=== PATIENT | female | born 1970 | race Caucasian/White ===

== ENCOUNTER 2017-05-13 17:43 | Emergency (ER) | payer BC ==
[2017-05-13] MEDS ORDERED: Ketorolac INJ* 60 MG/2 ML VIAL IM ONE (18:58)
[2017-05-13 20:18] LABS: ABS Basophils 0 10^3/ul (0-0.2); ABS Eosinophils 0 10^3/ul (0-0.6); ABS Lymphocytes 1.4 10^3/ul (1.0-4.8); ABS Monocytes 0.7 10^3/ul (0-0.8); ABS Neutrophils 11.9 10^3/ul (1.5-7.7); ABS Nucleated RBC 0 10^3/ul; Eosinophil % 0.3 % (0-6); Hematocrit 40 % (35-47); Hemoglobin 13.4 g/dl (12.0-16.0); Lymphocyte % 10.1 % (25-47); Mean Corpuscular HGB Conc 34 g/dl (31-36); Mean Corpuscular Hemoglobin 29 pg (27-31); Mean Corpuscular Volume 86 fL (80-97); Mean Platelet Volume 7 um3 (7.4-10.4); Nucleated Red Blood Cells % 0.1; Platelet Count 337 10^3/ul (150-450); Red Blood Count 4.59 10^6/ul (4.0-5.4); Red Cell Distribution Width 14 % (10.5-15); White Blood Count 14.1 10^3/ul (3.5-10.8)
--- NOTE | 2017-05-13 20:23 | RAD ---
INDICATION: Left flank and pelvic pain COMPARISON: None TECHNIQUE: Real-time ultrasound examination of the bilateral kidneys and urinary bladder including grayscale and Doppler color flow analysis. FINDINGS: Bilaterally the kidneys are normal in size and echogenicity. There are no hypervascular renal masses. There are no renal calculi or hydronephrosis identified. The gregory of the urinary bladder are smooth. The pre and post urinary bladder volumes are 335 mL and 57 mL, respectively. Normal ureteral jets are identified bilaterally. Incidentally noted is a partially cystic structure in the uterus. IMPRESSION: 1. Normal ultrasound of the kidneys and urinary bladder. 2. Incidentally noted is a partially cystic structure in the uterus which could be related to the patient's history of endometrial ablation. If the patient is exhibiting any gynecologic symptoms dedicated transvaginal pelvic ultrasound is advised.
[2017-05-13 20:24] LABS: Urine Appearance Clear; Urine Blood 1+ (Negative); Urine Color Straw; Urine Ketones Negative (Negative); Urine Protein Negative (Negative); Urine Specific Gravity 1.003 (1.010-1.030); Urine Urobilinogen Negative (Negative)
[2017-05-13 20:30] LABS: EGFR Non-African American 74.3 (>60)
--- NOTE | 2017-05-13 21:22 | RAD ---
CLINICAL HISTORY: Left flank pain and hematuria COMPARISON: Same day renal ultrasound that did not show any acute renal abnormalities. TECHNIQUE: Noncontrast CT examination of the abdomen and pelvis from the lung bases through the initial tuberosities. FINDINGS: VISUALIZED LUNG BASES: The visualized lung bases are grossly clear. There is no pleural effusion. ABDOMEN AND PELVIS: Evaluation of the solid organs and vasculature is limited without intravenous contrast. The liver, spleen, pancreas and adrenal glands are grossly normal in appearance. The gallbladder is normal. The kidneys are normal in appearance without focal mass, calcification or signs of hydronephrosis. The small and large bowel are not distended. The appendix is not visualized consistent with the reported surgical history. There is no gross retroperitoneal or mesenteric lymphadenopathy. The uterus is slightly heterogeneous attenuation including a 9 mm hypoattenuating focus at the right of midline fundal height endometrium. The abdominal aorta and iliac arteries are normal in course and diameter. There is a small amount of subcutaneous induration overlying the right buttock with a focus of gas (image 59). Degenerative changes include multilevel loss of intervertebral disc height involving the lower thoracic and lumbar spine.There are no sinister bone lesions. IMPRESSION: 1. No renal calculi or signs of hydronephrosis identified. 2. Overlying the right buttock is a focus of subcutaneous gas surrounded by increased attenuation. Please correlate to recent injection site. 3. As was partially imaged on the prior renal ultrasound, the uterus is heterogeneous. The uterus is incompletely evaluated on a noncontrast CT as well. There is no prior pelvic imaging for comparison to comment on chronicity.
[2017-05-13] MEDS ORDERED: Ciprofloxacin TAB* 500 MG PO ONE (21:29)
[2017-05-13] MEDS ORDERED: oxyCODONE/Acetamin 5/325 MG* TAB PO ONE (21:29)
[2017-05-13 22:05] VITALS: BP 108/70
--- NOTE | 2017-05-15 11:05 | ED ---
Jian Leroy Stephanie, scribed for Mike Mujica MD on 05/13/17 at 1856 . Abdominal Pain/Female - History of Current Complaint Chief Complaint: EDAbdPain Stated Complaint: POSS KINDEY STONES Time Seen by Provider: 05/13/17 18:26 Hx Obtained From: Patient Hx Last Menstrual Period: 05/20/13 Onset/Duration: Gradual Onset, Lasting Days - 4, Still Present Timing: Constant Severity Currently: Severe Pain Intensity: 9 Pain Scale Used: 0-10 Numeric Location: Suprapubic Aggravating Factor(s): Nothing Alleviating Factor(s): Nothing Associated Signs and Symptoms: Negative: Urinary Symptoms Allergies/Adverse Reactions: Allergies Allergy/AdvReac Type Severity Reaction Status Date / Time MS Codeine [Codeine] Allergy Mild Hallucinati Verified 06/06/13 19:13 ons PMH/Surg Hx/FS Hx/Imm Hx Endocrine/Hematology History: Reports: Hx Thyroid Disease - left lobe thyroid removal Denies: Hx Diabetes Cardiovascular History: Denies: Hx Hypertension, Hx Pacemaker/ICD GI History: 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 History: Denies: Hx Dialysis, Hx Renal Disease Sensory History: Reports: Hx Contacts or Glasses Denies: Hx Hearing Aid Opthamlomology History: Reports: Hx Contacts or Glasses Neurological History: Reports: Hx Migraine Psychiatric History: Reports: Hx Anxiety, Hx Panic Disorder - ANXIETY WILL BE FINE FOR MRI - Cancer History Hx Chemotherapy: No Hx Radiation Therapy: No - Surgical History Surgery Procedure, Year, and Place: APPENDIX, FEMUR RODDING AND REMOVAL, BREAST AUGMENTATION, ENDOMETRIAL ABLATION, LEFT THYROID REMOVAL Infectious Disease History: No Infectious Disease History: Denies: Traveled Outside the [place] in Last 30 Days - Family History Known Family History: Positive: Cardiac Disease, Other - myeloma, renal cancer - Social History Occupation: Employed Full-time Lives: With Family Alcohol Use: Occasionally Alcohol Amount: once per month Substance Use Type: Reports: None Hx Tobacco Use: No Smoking Status (MU): Never Smoked Tobacco Review of Systems Negative: Fever, Chills Negative: Erythema Negative: Sore Throat Negative: Chest Pain Negative: Shortness Of Breath, Cough Positive: Abdominal Pain. Negative: Vomiting, Nausea Negative: dysuria, hematuria Negative: Myalgia, Edema Negative: Rash Neurological: Other - Negative: dizziness All Other Systems Reviewed And Are Negative: Yes Physical Exam - Summary Physical Exam Summary: Constitutional: Well-developed, Well-nourished, Alert. (-) Distressed Skin: Warm, Dry HENT: Normocephalic; Atraumatic Eyes: Conjunctiva normal Neck: Musculoskeletal ROM normal neck. (-) JVD, (-) Stridor, (-) Tracheal deviation Cardio: Rhythm regular, rate normal, Heart sounds normal; Intact distal pulses; The pedal pulses are 2+ and symmetric. Radial pulses are 2+ and symmetric. (-) Murmur Pulmonary/Chest wall: Effort normal. (-) Respiratory distress, (-) Wheezes, (-) Rales Abd: exquisite suprapubic tenderness, (-) Distension, (-) Guarding, (-) Rebound Musculoskeletal: (-) Edema Lymph: (-) Cervical adenopathy Neuro: Alert, Oriented x3 Psych: Mood and affect Normal Triage Information Reviewed: Yes Vital Signs On Initial Exam: Initial Vitals Temp Pulse Resp BP Pulse Ox 99.1 F 77 18 135/92 100 05/13/17 17:49 05/13/17 17:49 05/13/17 17:49 05/13/17 17:49 05/13/17 17:49 Vital Signs Reviewed: Yes Diagnostics - Vital Signs Vital Signs Temp Pulse Resp BP Pulse Ox 05/13/17 17:49 99.1 F 77 18 135/92 100 - Laboratory Result Diagrams: 05/13/17 20:00 05/13/17 20:00 Lab Statement: Any lab studies that have been ordered have been reviewed, and results considered in the medical decision making process. - CT Abd/Pelvis CT Interpretation: No Acute Changes CT Interpretation Completed By: Radiologist - 1. No renal calculi or signs of hydronephrosis identified. 2. Overlying the right buttock is a focus of subcutaneous gas surrounded by increased attenuation. Please correlate to recent injection site. 3. As was partially imaged on the prior renal ultrasound , the uterus is heterogeneous. The uterus is incompletely evaluated on a noncontrast CT as well. There is no prior pelvic imaging for comparison to comment on chronicity. - Additional Comments Diagnostic Additional Comments: US abdomen/bladder reveals: 1. Normal ultrasound of the kidneys and urinary bladder. 2. Incidentally noted is a partially cystic structure in the uterus which could be related to the patient's history of endometrial ablation. If the patient is exhibiting any gynecologic symptoms dedicated transvaginal pelvic ultrasound is advised. Re-Evaluation - Re-Evaluation First Eval Re-Evaluation Time: 20:30 Change: Improved - Pt feels better after Toradol. Abdominal Pain Fem Course/Dx - Course Course Of Treatment: Abx are appropriate. No sign of obstructing stone. - Diagnoses Provider Diagnoses: UTI (urinary tract infection), Flank pain Discharge - Discharge Plan Condition: Stable Disposition: HOME Patient Education Materials: Urinary Tract Infection in Women (ED), Flank Pain (ED) Referrals: Maggie Summers MD [Primary Care Provider] - 3 Days Additional Instructions: RETURN TO THE EMERGENCY DEPARTMENT FOR CHANGING OR WORSENING SYMPTOMS The documentation as recorded by the Jian russell Stephanie accurately reflects the service I personally performed and the decisions made by , Mike Mujica MD.
== END 2017-05-13 22:06 | disposition home or self-care (01) ==
LOC: ED 17:43
DX: N39.0 Urinary tract infection, site not specified (principal); N85.9 Noninflammatory disorder of uterus, unspecified; Z88.5 Allergy status to narcotic agent
CPT/HCPCS: 36415; 74176; 76770; 80053; 81003; 81015; 83605; 83690; 85025; 86140; 96372; 99283; A9270-GY; J1885

== ENCOUNTER 2017-07-22 11:54 | Emergency (ER) | payer BC ==
[2017-07-22] MEDS ORDERED: Morphine INJ* 10 MG/ML 1 ML CARPUJECT IV ONE (12:11)
[2017-07-22] MEDS ORDERED: Ondansetron INJ* 2 MG/ML VIAL IV ONE (12:11)
[2017-07-22] MEDS ORDERED: Morphine VIAL* 4 MG/ML VIAL (1 ml vial) IV ONE ×2 (12:48→12:56)
--- NOTE | 2017-07-22 13:39 | RAD ---
Indication: Left lower quadrant pain. Real-time sonography of the pelvis was performed utilizing endovaginal technique. The uterus measures 10.0 x 5.3 x 6.4 cm. Endometrial echo measures 8 mm. There is a fibroid in the anterior body measuring 17 x 19 x 19 mm. Hypoechoic area posterior to the endometrium may represent a submucosal cyst which was present previously and now measures 14 x 13 x 9 mm. This may represent a complex cyst or hemorrhagic cyst. The right ovary measures 3.1 x 1.7 x 2.2 cm. Left ovary measures 2.4 x 1.6 x 2.1 cm. Doppler interrogation demonstrates flow in both ovaries. IMPRESSION: No adnexal masses are noted. Fibroid in the anterior body of the uterus measures 17 x 19 x 19 mm. Likely complex cystic area posterior to the endometrium measuring 14 x 13 x 9 mm.
[2017-07-22 13:40] LABS: Urine Appearance Clear; Urine Blood Negative (Negative); Urine Color Straw; Urine Ketones Negative (Negative); Urine Protein Negative (Negative); Urine Urobilinogen Negative (Negative)
[2017-07-22 14:09] LABS: ABS Basophils 0.1 10^3/ul (0-0.2); ABS Eosinophils 0 10^3/ul (0-0.6); ABS Lymphocytes 0.5 10^3/ul (1.0-4.8); ABS Monocytes 0.7 10^3/ul (0-0.8); ABS Neutrophils 17.5 10^3/ul (1.5-7.7); ABS Nucleated RBC 0 10^3/ul; Eosinophil % 0.1 % (0-6); Hematocrit 38 % (35-47); Hemoglobin 12.7 g/dl (12.0-16.0); Lymphocyte % 2.8 % (25-47); Mean Corpuscular HGB Conc 33 g/dl (31-36); Mean Corpuscular Hemoglobin 29 pg (27-31); Mean Corpuscular Volume 88 fL (80-97); Mean Platelet Volume 6.8 um3 (7.4-10.4); Nucleated Red Blood Cells % 0; Platelet Count 222 10^3/ul (150-450); Red Blood Count 4.35 10^6/ul (4.0-5.4); Red Cell Distribution Width 13 % (10.5-15); White Blood Count 18.8 10^3/ul (3.5-10.8)
[2017-07-22 14:29] LABS: EGFR Non-African American 80.7 (>60)
[2017-07-22] MEDS ORDERED: Iohexol 300* (CONTRAST) 10 ML SDV IV ONE (16:56)
--- NOTE | 2017-07-22 17:57 | RAD ---
Indication: Left lower quadrant pain. Contrast: Administered 97.0 ml of OMNIPAQUE 300 mg/ml CT of the abdomen and pelvis was performed after oral and IV contrast administration. Coronal and sagittal reconstructed images were obtained. Comparison is made with previous exam dated May 13, 2017. The lung bases demonstrate no pleural fluid, nodules or masses. Heart is of normal size without evidence of pericardial effusion. The liver is normal in size. No focal lesions or intrahepatic ductal dilatation is noted. The gallbladder is distended with no evidence of gallstones, pericholecystic fluid or wall thickening. The spleen is normal in size. Pancreas demonstrates no mass effect or ductal dilatation. The common duct is not dilated. No adrenal lesions are noted. The kidneys demonstrate symmetric nephrograms without hydronephrosis. No solid masses are noted. A retroaortic left renal vein is noted. No evidence of bowel obstruction is noted with contrast in the right colon. Myomatous changes of the uterus are noted with low density lesions within the uterus. No adnexal masses are noted. A trace amount of fluid is noted in the cul-de-sac. No hernias are noted. Diverticulosis of the sigmoid colon without definite evidence of diverticulitis is noted. No inguinal adenopathy is noted. The bony structures are otherwise unremarkable. Sclerotic lesion is noted in the left ilium. IMPRESSION: Trace amount of free fluid in the cul-de-sac. Low density lesions in the uterus likely represent fibroids. No other masses or fluid collections are noted.
--- NOTE | 2017-07-22 18:43 | ED ---
I, Ml Villar, scribed for Lavon Calvert MD on 07/22/17 at 1808 . Progress - Progress Note Progress Note: CT abdomen/pelvis reveals: Trace amount of free fluid in the cul-de-sac. Low density lesions in the uterus likely represent fibroids. No other masses or fluid collections are noted. ED physician has reviewed this report. I assumed care from Dr. Mujica. Patient's pain is much improved. She was reexamined and there is no significant pain in the left lower quadrant or pelvis. No UTI or blood in the urine. There is a submucosal cyst that is apparently hemorrhagic which could be causing the symptoms. Based fibroid in the uterus could also be causative. She has follow-up scheduled for early July with her HAND BANDER but she is encouraged to call the morning to follow-up more closely. Will treat with antibiotics and pain control. Re-Evaluation - Re-Evaluation First Eval Re-Evaluation Time: 18:08 Change: Improved - The pt's pain is resolved. Course/Dx - Diagnoses Provider Diagnoses: LLQ pain, Pelvic pain in female, Uterine fibroid, Uterine cyst Discharge - Sign-Out/Discharge Documenting (check all that apply): Discharge/Admit/Transfer - discharge - Discharge Plan Condition: Good Disposition: HOME Prescriptions: Levofloxacin TAB* [Levaquin TAB*] 500 mg PO DAILY #7 tab traMADol TAB* [Ultram*] 50 mg PO Q8H PRN #10 tab MDD 3 PRN Reason: more severe pain Patient Education Materials: Pelvic Pain in Women (ED) Referrals: Maggie Summers MD [Primary Care Provider] - Additional Instructions: Follow up with your PHYSICAL THERAPY INSTRUCTOR first thing in the morning. Return with fever, uncontrolled pain, worse or other concerns. - Billing Disposition and Condition Condition: GOOD Disposition: HOME The documentation as recorded by the Jian russell Stephanie accurately reflects the service I personally performed and the decisions made by me, Lavon Calvert MD.
[2017-07-22] MEDS ORDERED: Ondansetron ODT TAB* 4 MG SL ONE (18:49)
[2017-07-22] MEDS ORDERED: Ibuprofen TAB* 400 MG PO ONE (18:50)
[2017-07-22 18:55] VITALS: BP 122/76
--- NOTE | 2017-07-24 13:42 | ED ---
I, Ml Villar, scribed for Mike Mujica MD on 07/22/17 at 1425 . Re-Evaluation - Re-Evaluation First Eval Re-Evaluation Time: 15:23 Change: Improved - The pt is pain-free at this time. Second Eval Re-Evaluation Time: 17:18 Change: Improved - The pt's pain is resolved. Course/Dx - Course Course Of Treatment: The pt is a sign out to Dr. Calvert at shift change pending CT abdomen/pelvis. There is significant concern for episodic pelvic pain vs diverticulitis. - Diagnoses Provider Diagnoses: LLQ pain Discharge - Sign-Out/Discharge Documenting (check all that apply): Sign-Out Patient Signing out patient TO: Lavon Calvert - Pending CT abdomen/pelvis. - Discharge Plan Condition: Stable Referrals: Maggie Summers MD [Primary Care Provider] - The documentation as recorded by the Jian russell Stephanie accurately reflects the service I personally performed and the decisions made by , Mike Mujica MD.
--- NOTE | 2017-07-24 13:44 | ED ---
Guille Leroy Julia, scribed for Mike Mujica MD on 07/22/17 at 1337 . Abdominal Pain/Female - HPI Summary HPI Summary: This patient is a 47 year old F BIBA to [facility] with a chief complaint of sudden onset lower abdominal pain/cramping worse on the left since 10:00 this morning. She states the pain radiates to the lower back. Pt reports nausea and diarrhea. Pt reports blood in her stool last week. Pt denies dysuria and hematuria. EMS gave 4mg of morphine which reduced her pain from a 10/10 to a 6/10. - History of Current Complaint Chief Complaint: EDAbdPain Stated Complaint: ABD PAIN Time Seen by Provider: 07/22/17 12:01 Hx Obtained From: Patient, EMS Onset/Duration: Sudden Onset, Lasting Hours Severity Initially: Severe Severity Currently: Moderate Pain Intensity: 6 Pain Scale Used: 0-10 Numeric Location: Other - lower worse on left Radiates: Yes Radiates to: Back Character: Cramping Aggravating Factor(s): Nothing Alleviating Factor(s): Medications - via EMS Associated Signs and Symptoms: Positive: Back Pain, Blood in Stool, Nausea, Diarrhea Allergies/Adverse Reactions: Allergies Allergy/AdvReac Type Severity Reaction Status Date / Time codeine Allergy Hallucinati Verified 07/22/17 12:03 ons Home Medications: Home Medications Pyridoxine TAB* [Vitamin B6 TAB*] 50 mg PO DAILY 07/22/17 [History Confirmed ] Zinc Gluconate-Zinc Picolinate [Zinc] 30 mg PO DAILY 07/22/17 [History Confirmed 07/22/17] PMH/Surg Hx/FS Hx/Imm Hx Endocrine/Hematology History: Reports: Hx Thyroid Disease - left lobe thyroid removal Denies: Hx Diabetes Cardiovascular History: Denies: Hx Hypertension, Hx Pacemaker/ICD GI History: 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 History: Denies: Hx Dialysis, Hx Renal Disease Sensory History: Reports: Hx Contacts or Glasses Denies: Hx Hearing Aid Opthamlomology History: Reports: Hx Contacts or Glasses Neurological History: Reports: Hx Migraine Psychiatric History: Reports: Hx Anxiety, Hx Panic Disorder - ANXIETY WILL BE FINE FOR MRI - Cancer History Hx Chemotherapy: No Hx Radiation Therapy: No - Surgical History Surgery Procedure, Year, and Place: APPENDIX, FEMUR RODDING AND REMOVAL, BREAST AUGMENTATION, ENDOMETRIAL ABLATION, LEFT THYROID REMOVAL Infectious Disease History: No Infectious Disease History: Denies: Traveled Outside the [place] in Last 30 Days - Family History Known Family History: Positive: Cardiac Disease, Other - myeloma, renal cancer - Social History Lives: With Family Alcohol Use: Occasionally Alcohol Amount: once per month Substance Use Type: Reports: None Hx Tobacco Use: No Smoking Status (MU): Never Smoked Tobacco Review of Systems Negative: Fever, Chills Negative: Erythema Negative: Sore Throat Negative: Chest Pain Negative: Shortness Of Breath, Cough Gastrointestinal: Other - bloody stool Positive: Abdominal Pain, Vomiting, Diarrhea, Nausea Negative: dysuria, hematuria Positive: Myalgia - back pain. Negative: Edema Negative: Rash Neurological: Negative - dizziness All Other Systems Reviewed And Are Negative: Yes Physical Exam - Summary Physical Exam Summary: Constitutional: Well-developed, Well-nourished, Alert. (-) Distressed Skin: Warm, Dry HENT: Normocephalic; Atraumatic Eyes: Conjunctiva normal Neck: Musculoskeletal ROM normal neck. (-) JVD, (-) Stridor, (-) Tracheal deviation Cardio: Rhythm regular, rate normal, Heart sounds normal; Intact distal pulses; The pedal pulses are 2+ and symmetric. Radial pulses are 2+ and symmetric. (-) Murmur Pulmonary/Chest wall: Effort normal. (-) Respiratory distress, (-) Wheezes, (-) Rales Abd: Soft, exquisite LLQ Tenderness, (-) Distension, (-) Guarding, (-) Rebound Musculoskeletal: (-) Edema Lymph: (-) Cervical adenopathy Neuro: Alert, Oriented x3 Psych: Mood and affect Normal Pelvic: left adnexal tenderness, no cervical motion. Dolly is present for exam. Triage Information Reviewed: Yes Vital Signs On Initial Exam: Initial Vitals Temp Pulse Resp BP Pulse Ox 98.6 F 80 18 134/84 100 07/22/17 11:58 07/22/17 11:58 07/22/17 11:58 07/22/17 11:58 07/22/17 11:58 Vital Signs Reviewed: Yes Diagnostics - Vital Signs Vital Signs Temp Pulse Resp BP Pulse Ox 07/22/17 13:05 79 18 100 07/22/17 12:02 74 134/84 100 07/22/17 12:01 77 100 07/22/17 11:58 98.6 F 80 18 134/84 100 - Laboratory Lab Results: Lab Results 07/22/17 07/22/17 07/22/17 Range/Units 12:29 13:05 13:52 WBC (3.5-10.8) 10^3/ul RBC (4.0-5.4) 10^6/ul Hgb (12.0-16.0) g/dl Hct (35-47) % MCV (80-97) fL MCH (27-31) pg MCHC (31-36) g/dl RDW (10.5-15) % Plt Count (150-450) 10^3/ul MPV (7.4-10.4) um3 Neut % (Auto) (38-83) % Lymph % (Auto) (25-47) % Webb % (Auto) (0-7) % Eos % (Auto) (0-6) % Baso % (Auto) (0-2) % Absolute Neuts (auto) (1.5-7.7) 10^3/ul Absolute Lymphs (auto) (1.0-4.8) 10^3/ul Absolute Monos (auto) (0-0.8) 10^3/ul Absolute Eos (auto) (0-0.6) 10^3/ul Absolute Basos (auto) (0-0.2) 10^3/ul Absolute Nucleated RBC 10^3/ul Nucleated RBC % Sodium 140 (139-145) mmol/L Potassium 3.4 L (3.5-5.0) mmol/L Chloride 108 (101-111) mmol/L Carbon Dioxide 23 (22-32) mmol/L Anion Gap 9 (2-11) mmol/L BUN 12 (6-24) mg/dL Creatinine 0.77 (0.51-0.95) mg/dL Est GFR ( Amer) 103.8 (>60) Est GFR (Non-Af Amer) 80.7 (>60) BUN/Creatinine Ratio 15.6 (8-20) Glucose 106 H (70-100) mg/dL Lactic Acid (0.5-2.0) mmol/L Calcium 8.8 (8.6-10.3) mg/dL Total Bilirubin 0.70 (0.2-1.0) mg/dL AST 18 (13-39) U/L ALT 13 (7-52) U/L Alkaline Phosphatase 59 (34-104) U/L C-Reactive Protein 2.59 (< 5.00) mg/L Total Protein 6.4 (6.4-8.9) g/dL Albumin 3.9 (3.2-5.2) g/dL Globulin 2.5 (2-4) g/dL Albumin/Globulin Ratio 1.6 (1-3) Lipase 14 (11.0-82.0) U/L Urine Color Straw Urine Appearance Clear Urine pH 6.0 (5-9) Ur Specific Matthews 1.010 (1.010-1.030) Urine Protein Negative (Negative) Urine Ketones Negative (Negative) Urine Blood Negative (Negative) Urine Nitrate Negative (Negative) Urine Bilirubin Negative (Negative) Urine Urobilinogen Negative (Negative) Ur Leukocyte Esterase Trace A (Negative) Urine WBC (Auto) Trace(0-5/hpf) (Absent) Urine RBC (Auto) Trace(0-2/hpf) (Absent) Urine Bacteria Absent (Absent) Urine Glucose Negative (Negative) C.trachomatis (Amp Det) Negative (Negative) N.gonorrhoeae (Amp Det) Negative (Negative) T.vaginalis (Amp Det) Negative (Negative) 07/22/17 07/22/17 07/22/17 Range/Units 13:52 13:52 17:45 WBC 18.8 H (3.5-10.8) 10^3/ul RBC 4.35 (4.0-5.4) 10^6/ul Hgb 12.7 (12.0-16.0) g/dl Hct 38 (35-47) % MCV 88 (80-97) fL MCH 29 (27-31) pg MCHC 33 (31-36) g/dl RDW 13 (10.5-15) % Plt Count 222 (150-450) 10^3/ul MPV 6.8 L (7.4-10.4) um3 Neut % (Auto) 92.9 H (38-83) % Lymph % (Auto) 2.8 L (25-47) % Webb % (Auto) 3.9 (0-7) % Eos % (Auto) 0.1 (0-6) % Baso % (Auto) 0.3 (0-2) % Absolute Neuts (auto) 17.5 H (1.5-7.7) 10^3/ul Absolute Lymphs (auto) 0.5 L (1.0-4.8) 10^3/ul Absolute Monos (auto) 0.7 (0-0.8) 10^3/ul Absolute Eos (auto) 0 (0-0.6) 10^3/ul Absolute Basos (auto) 0.1 (0-0.2) 10^3/ul Absolute Nucleated RBC 0 10^3/ul Nucleated RBC % 0 Sodium (139-145) mmol/L Potassium (3.5-5.0) mmol/L Chloride (101-111) mmol/L Carbon Dioxide (22-32) mmol/L Anion Gap (2-11) mmol/L BUN (6-24) mg/dL Creatinine (0.51-0.95) mg/dL Est GFR ( Amer) (>60) Est GFR (Non-Af Amer) (>60) BUN/Creatinine Ratio (8-20) Glucose (70-100) mg/dL Lactic Acid 2.4 H* 1.1 (0.5-2.0) mmol/L Calcium (8.6-10.3) mg/dL Total Bilirubin (0.2-1.0) mg/dL AST (13-39) U/L ALT (7-52) U/L Alkaline Phosphatase (34-104) U/L C-Reactive Protein (< 5.00) mg/L Total Protein (6.4-8.9) g/dL Albumin (3.2-5.2) g/dL Globulin (2-4) g/dL Albumin/Globulin Ratio (1-3) Lipase (11.0-82.0) U/L Urine Color Urine Appearance Urine pH (5-9) Ur Specific Matthews (1.010-1.030) Urine Protein (Negative) Urine Ketones (Negative) Urine Blood (Negative) Urine Nitrate (Negative) Urine Bilirubin (Negative) Urine Urobilinogen (Negative) Ur Leukocyte Esterase (Negative) Urine WBC (Auto) (Absent) Urine RBC (Auto) (Absent) Urine Bacteria (Absent) Urine Glucose (Negative) C.trachomatis (Amp Det) (Negative) N.gonorrhoeae (Amp Det) (Negative) T.vaginalis (Amp Det) (Negative) Result Diagrams: 07/22/17 13:52 07/22/17 13:52 Lab Statement: Any lab studies that have been ordered have been reviewed, and results considered in the medical decision making process. - Additional Comments Diagnostic Additional Comments: A Transvaginal US reveals, as per radiologist: No adnexal masses are noted. Fibroid in the anterior body of the uterus measures 17 x 19 x 19 mm. Likely complex cystic area posterior to the endometrium measuring 14 x 13 x 9 mm. ED Physician has reviewed this report. Re-Evaluation - Re-Evaluation First Eval Re-Evaluation Time: 15:23 Change: Improved - The pt is pain-free at this time. Second Eval Re-Evaluation Time: 17:18 Change: Improved - The pt's pain is resolved. Abdominal Pain Fem Course/Dx - Diagnoses Provider Diagnoses: LLQ pain, Pelvic pain in female, Uterine fibroid, Uterine cyst Discharge - Sign-Out/Discharge Documenting (check all that apply): Discharge/Admit/Transfer, Sign-Out Patient Signing out patient TO: Lavon Calvert - Discharge Plan Condition: Good Disposition: HOME Prescriptions: Levofloxacin TAB* [Levaquin TAB*] 500 mg PO DAILY #7 tab traMADol TAB* [Ultram*] 50 mg PO Q8H PRN #10 tab MDD 3 PRN Reason: more severe pain Patient Education Materials: Pelvic Pain in Women (ED) Referrals: Maggie Summers MD [Primary Care Provider] - Additional Instructions: Follow up with your SPOT MACHINE OPERATOR first thing in the morning. Return with fever, uncontrolled pain, worse or other concerns. - Billing Disposition and Condition Condition: GOOD Disposition: HOME The documentation as recorded by the Guille russell Julia accurately reflects the service I personally performed and the decisions made by me, Mike Mujica MD.
== END 2017-07-22 18:55 | disposition home or self-care (01) ==
LOC: ED 11:54
DX: R10.32 Left lower quadrant pain (principal); R10.2 Pelvic and perineal pain; D25.9 Leiomyoma of uterus, unspecified; N28.89 Other specified disorders of kidney and ureter
CPT/HCPCS: 36415; 74177; 76830; 80053; 81003; 81015; 83605; 83690; 85025; 86140; 87040; 87086; 87480; 87491; 87510; 87591; 87661; 96374; 96375; 99283; A9270-GY; J2270; J2405; Q9967

== ENCOUNTER 2018-11-12 08:03 | Observation (INO) | payer BC ==
[~2018-11-12 08:03] MED LIST: Buffered Lidocaine 1% SYRIN* 1 ML/SYRINGE INTRADERM ONE; Dexamethasone IV* 4 MG/ML 1 ML (4 MG) IV SLOW PU ONE; Famotidine IV* 10 MG/ML 2 ML (20 mg) IV ONE; Lactated Ringers 1000 ML Bag* 1,000 ML IV SCH; Scopolamine 1.5 mg* PATCH TRANSDERM ONE; Sodium Citrate/Citric Acid* 15 ML UDC PO ONE
[2018-11-12] MEDS ORDERED: Dexamethasone IV* 4 MG/ML 1 ML (4 MG) ONE (08:12)
[2018-11-12] MEDS ORDERED: Famotidine IV* 10 MG/ML 2 ML (20 mg) ONE (08:13)
[2018-11-12] MEDS ORDERED: Sodium Citrate/Citric Acid* 15 ML UDC ONE (08:13)
[2018-11-12] MEDS ORDERED: Buffered Lidocaine 1% SYRIN* 1 ML/SYRINGE INTRADERM ONE (08:13)
[2018-11-12] MEDS ORDERED: Scopolamine 1.5 mg* PATCH ONE (08:13)
[2018-11-12] MEDS ORDERED: ceFAZolin 2 GM in NS PREMIX(*) 2 GM/100 ML BAG IVPB ONE (08:13)
[2018-11-12] MEDS ORDERED: fentaNYL* 50 MCG/ML 5 ML VIAL (250 MCG VIAL) ONE (09:23)
[2018-11-12] MEDS ORDERED: Atracurium* 10 MG/ML 10 ML VIAL ONE (09:23)
[2018-11-12] MEDS ORDERED: Ketorolac INJ* 30 MG/ML 1 ML VIAL ONE (09:24)
[2018-11-12] MEDS ORDERED: Lidocaine 2% PF * 5 ML VIAL ONE (09:24)
[2018-11-12] MEDS ORDERED: Midazolam* 1 MG/ML 5 ML VIAL (5 MG) ONE (09:24)
[2018-11-12] MEDS ORDERED: Ondansetron INJ* 2 MG/ML VIAL ONE (09:24)
[2018-11-12] MEDS ORDERED: Propofol* 10 MG/ML 20 ML BTL ONE (09:24)
[2018-11-12] MEDS ORDERED: Bupivacaine 0.25% W/EPI* 10 ML SDV ONE (10:03)
[2018-11-12 10:09] LABS: ABS Basophils 0.1 10^3/ul (0-0.2); ABS Eosinophils 0.1 10^3/ul (0-0.6); ABS Monocytes 0.5 10^3/ul (0-0.8); ABS Neutrophils 4.4 10^3/ul (1.5-7.7); Eosinophil % 1.5 %; Hematocrit 43 % (35-47); Hemoglobin 14.7 g/dL (12.0-16.0); Lymphocyte % 28.9 %; Mean Corpuscular HGB Conc 34 g/dL (31-36); Mean Corpuscular Hemoglobin 30 pg (27-31); Mean Corpuscular Volume 87 fL (80-97); Mean Platelet Volume 7.5 fL (7.4-10.4); Platelet Count 358 10^3/uL (150-450); Red Blood Count 4.99 10^6 /uL (3.70-4.87); Red Cell Distribution Width 14 % (10-15); White Blood Count 7.1 10^3/uL (3.5-10.8)
[2018-11-12] MEDS ORDERED: HYDROmorphone INJ1* 1 MG/ML SYRINGE IV PRN (11:01)
[2018-11-12] MEDS ORDERED: Ondansetron INJ* 2 MG/ML VIAL IV PRN ×2 (11:01→12:29)
[2018-11-12] MEDS ORDERED: fentaNYL* 50 MCG/ML 2 ML VIAL (100 MCG VIAL) IV PRN (11:01)
[2018-11-12] MEDS ORDERED: DiMENhydriNATE IV* 50 MG/ML VIAL IV PUSH PRN (11:01)
[2018-11-12] MEDS ORDERED: Naloxone* 0.4 MG/ML 1 ML VIAL IV PRN (11:01)
[2018-11-12] MEDS ORDERED: Fluorescein 10% INJ* 100 MG/ML AMP ONE (11:29)
[2018-11-12] MEDS ORDERED: fentaNYL* 50 MCG/ML 2 ML VIAL (100 MCG VIAL) ONE (12:19)
[2018-11-12] MEDS ORDERED: Ibuprofen TAB* 600 MG PO PRN (12:29)
[2018-11-12] MEDS ORDERED: oxyCODONE/Acetamin 5/325 MG* TAB PO PRN (12:29)
[2018-11-12] MEDS ORDERED: HYDROmorphone INJ* 0.5 MG/0.5 ML SYRINGE IV PRN (12:29)
[2018-11-12] MEDS: Lactated Ringers 1000 ML Bag* 1,000 ML IV SCH ×2 (14:27→21:54)
--- NOTE | 2018-11-12 14:44 | OP ---
DATE OF OPERATION: 11/12/18 - ROOM #338 DATE OF : 72 SURGEON: Steve Teixeira MD RN TRANSITION: Dr. Holguin. ANESTHESIA: General endotracheal tube. PRE-OP DIAGNOSIS: Pelvic pain. POST-OP DIAGNOSIS: Pelvic pain. OPERATIVE PROCEDURE: Laparoscopic supracervical hysterectomy and bilateral salpingectomy and cystoscopy. ESTIMATED BLOOD LOSS: 100 cc. SPECIMENS: Include uterus and fallopian tubes. FINDINGS: On laparoscopy, the anterior bladder flap appeared normal. The cul- de- sac appeared normal. The uterus was bulky, but both tubes and ovaries appeared normal. The liver surface was smooth. The gallbladder appeared normal. The intestines appeared normal. DESCRIPTION OF PROCEDURE: The patient was identified and the procedure identified as a laparoscopic supracervical hysterectomy. The patient was taken to the operating room, prepped and draped in the usual fashion in the dorsal lithotomy position under general anesthesia. First, the Valdes catheter was placed and then a ClearView uterine manipulator was placed in the cervical os. A small infraumbilical incision was made and carried down through fat, fascia, and peritoneum. The Dean retractor was placed and a GelPOINT was placed over the top of it, the hysteroscope inserted, and the above findings were noted. Using the LigaSure, the left fallopian tube was grasped in the mid portion, followed out to its fimbriated ends, and fulgurated, excising it from the ovary and the mesosalpinx. This was brought to the level of the ovarian ligament. Basically, the ovarian ligament was cauterized using the LigaSure and then incised. The same was done on the tube and on the round ligament. A bladder flap was created via sharp and blunt dissection. The uterine vessels were then ligated using the LigaSure on the left side and attention was turned to the right side. The fallopian tube again was grasped at its fimbriated ends, ligated down to the mesosalpinx using the LigaSure and then incised down to the level of the ovarian ligament. The ovarian ligament was then cauterized and incised and the round ligament, and the bladder flap was created on the right side as well. The uterine vessels on this side were skeletonized first and then cauterized using the LigaSure until the uterus was seen to humaira. Good hemostasis was verified using the LigaSure. The SupraLoop was placed over the uterus and 100 pure cut was placed free of bowel and found to be at the uterine cervical junction, it was found to be free. Using unipolar cautery, the uterus was excised from the cervical stump. Upon inspection, there was concern that the area along the uterine artery on the left side where the vein is could have potentially been a ureter, so for this reason, a setup for cystoscopy was done. At this point of the procedure, there was good hemostasis achieved on the uterine stump using the LigaSure. The uterus was placed within an endobag through the Dean retractor and brought out through the inside the bag out to the incision and morcellated until it was removed from the abdomen. Bag was removed intact. Copious irrigation was utilized and suctioned out and cauterized along the cervical stump. Good hemostasis was verified. Again, given the large size of this area which supplied the uterine vein, the decision was made to look with cystoscopy. Fluorescein had been given. Using 30 degree cystoscope, both ureteral orifices were visualized and found to have good jets proceeding from both of them. Good hemostasis was verified. The bladder was re - drained using the Valdes. The abdomen was deflated of CO2. The umbilical incision was closed in the fascia using 0 Polysorb in a running fashion. Good hemostasis achieved in the subcu and the skin was closed with 3-0 Vicryl in a subcuticular fashion. Skin glue was applied. All sponge and instrument counts were correct and the patient returned to recovery room in stable condition. [id number]/[facility] #: [id number] MTDD
[2018-11-12] MEDS ORDERED: clonazePAM TAB(*) 0.5 MG PO PRN (14:49)
[2018-11-12] MEDS ORDERED: celeCOXIB CAP* 100 MG PO PRN (14:49)
--- NOTE | 2018-11-12 16:13 | PN ---
Progress Note - Progress Note Date of Service: 11/12/18 SOAP: Subjective:Pt seen and examined on afternoon rounds. Pt doing well postoperatively. Sitting upright in bed, awake and alert. Pain is well controlled. Tolerating crackers and fluids. Objective: AVSS, Afebrile Non-labored respirations RRR Abd soft, nd, nttp, no rebound, no guarding Incision c/d/i Ext warm, nttp, SCD's on and inflating A/P: 48 y/o POD#0 s/p LSC MABEL, BS, doing well: - AVSS, afebrile, hemodynamically stable, Post-op Hct pending - pain well controlled - Incision c/d/i - UOP adequate - Tolerating PO - Valdes out once ambulating - DC IV Fluids s/p spontaneous void - Continue IS KLD, DO
[2018-11-12 16:41] LABS: Hematocrit 41 % (35-47); Hemoglobin 13.9 g/dL (12.0-16.0)
[2018-11-12] MEDS: oxyCODONE/Acetamin 5/325 MG* TAB PO PRN (20:10)
[2018-11-13 07:35] VITALS: BP 97/54
[2018-11-13] MEDS: oxyCODONE/Acetamin 5/325 MG* TAB PO PRN (08:55)
--- NOTE | 2018-11-14 12:39 | DS ---
CC: Maggie Alamo MD DISCHARGE SUMMARY: DATE OF ADMISSION: 11/12/18 DATE OF DISCHARGE: PRIMARY CARE PROVIDER: Maggie Alamo MD PRINCIPAL DIAGNOSES: Pelvic pain and dysmenorrhea. SECONDARY DIAGNOSES: Failed ablation and tubal ablation syndrome. DISCHARGE MEDICATIONS: She went home on: 1. Ibuprofen 600 mg p.o. q.6 hours p.r.n. 2. Oxycodone 5/325 1 p.o. q.4 hours p.r.n. FOLLOWUP: She is to follow up in the office in 1 week. CONDITION ON DISCHARGE: She was stable at the time of discharge. HISTORY: This is a 48-year-old with status post ablation approximately 7 years prior, who did well u p until a year prior to admission at this time; at which time, she began to have pain in a cyclic man ner around the time when she would usually get a period. I believe just before the surgery, she bega n having slight spotting on occasion. Ultrasound did show trapped blood within the uterine cavity co nsistent with tubal ablation syndrome. She had two normal vaginal deliveries. She had a meningioma in 2009. Anxiety, migraine and some thy roid disease. Surgical history includes appendectomy, left femur fracture, breast augmentation, endometrial ablatio n, left part of her thyroid was removed. MEDICATIONS: Her meds include: 1. Ibuprofen. 2. Celebrex 100 mg. 3. Klonopin. 4. Norethindrone 5 mg. ALLERGIES: Include CODEINE. PHYSICAL EXAMINATION: Blood pressure on admission was 118/72, height was 5 feet 4 inches. Chest: C lear. COR: Regular rhythm. Abdomen: Soft, nontender. Uterus was mildly tender to palpation. HOSPITAL COURSE: She was admitted on 11/12/18 and underwent a laparoscopic supracervical hysterectom y and a cystoscopy. Cystoscopy was done due to concerns of a possible ureteral injury on the left, b ut that was found to not be the case. Otherwise, her course was uncomplicated. She went home on post operative day #1 without any complications. Her pathology is pending at this time. Her postop hemog lobin was 13.9 and 41. [id number]/[facility] #: [id number]
[2018-11-15] MEDS ORDERED: Scopolamine PATCH Remove* 1 NOTE MISC PATCH OFF ONE (06:00)
== END 2018-11-13 10:00 | disposition home or self-care (01) ==
LOC: OR 08:03 → SSU 14:01
PROVIDERS: ADMIT Obstetrics & Gynecology; ATTEND Obstetrics & Gynecology
DX: R10.2 Pelvic and perineal pain (principal); N94.6 Dysmenorrhea, unspecified; N94.9 Unspecified condition associated with female genital organs and menstrual cycle; Z98.890 Other specified postprocedural states; E03.9 Hypothyroidism, unspecified
CPT/HCPCS: 36415; 81025; 85014; 85018; 85025; 86850; 86900; 86901; 88307; 96361; 96374; 96375; A9270-GY; G0378; J0690; J1100; J1885; J2250; J2405; J2704; J3010